=== PATIENT | female | born 1940 | race Caucasian/White ===

== ENCOUNTER 2017-07-26 17:19 | Emergency (ER) | payer MEDICARE, BC ==
[~2017-07-26] VITALS: Ht 157.5 cm; Wt 67.2 kg
[~2017-07-26 17:19] MED LIST: ADV50500 INH; ALBU8.5H8 IH; ATRIN INH; CARV3.123 PO; GUAI120015 PO; TRAV5DRO EACHEYE
[2017-07-26 17:52] LABS: BASOPHILS # (AUTO) 0.1 X10'3 (0-0.2); BASOPHILS % (AUTO) 0.6 % (0-1); EOSINOPHILS # (AUTO) 0.2 X10'3 (0-0.9); EOSINOPHILS % (AUTO) 2.1 % (0-6); HEMATOCRIT 42.4 % (35.0-45.0); HEMOGLOBIN 14.7 g/dl (12.0-16.0); LYMPHOCYTES # (AUTO) 2.1 X10'3 (1.1-4.8); LYMPHOCYTES % (AUTO) 21.3 % (21-51); MEAN CORPUSCULAR HEMOGLOBIN 28.9 PG (27.0-31.0); MEAN CORPUSCULAR HGB CONC 34.6 % (33.0-36.5); MEAN CORPUSCULAR VOLUME 83.5 FL (78-98); MEAN PLATELET VOLUME 7.6 FL (7.4-10.4); MONOCYTES # (AUTO) 0.5 X10'3 (0-0.9); MONOCYTES % (AUTO) 4.7 % (2-12); NEUTROPHILS # (AUTO) 7.1 X10'3 (1.8-7.7); NEUTROPHILS % (AUTO) 71.3 % (42-75); PLATELET COUNT 391 X10'3 (140-440); RED BLOOD COUNT 5.07 X10'6 (4.20-5.60); RED CELL DISTRIBUTION WIDTH 13.9 % (11.5-14.5); WHITE BLOOD COUNT 9.9 X10'3 (4.5-11.0)
[2017-07-26 18:03] LABS: PARTIAL THROMBOPLASTIN TIME 29 SECONDS (22-32); PROTHROMBIN TIME 9.9 SECONDS (9.0-12.0)
[2017-07-26 18:10] LABS: ALANINE AMINOTRANSFERASE 31 U/L (12-78); ALBUMIN 3.8 G/DL (3.4-5.0); ALKALINE PHOSPHATASE 111 IU/L (46-116); ANION GAP 10 (8-16); ASPARTATE AMINO TRANSFERASE 22 U/L (10-37); BILIRUBIN,TOTAL 0.2 MG/DL (0.1-1.0); BLOOD UREA NITROGEN 15 MG/DL (7-18); BUN/CREATININE RATIO 17.2 (6.6-38.0); CHLORIDE 105 MMOL/L (99-107); CREATININE 0.87 MG/DL (0.40-0.90); GLUCOSE 103 MG/DL (70-104); POTASSIUM 3.5 MMOL/L (3.5-5.1); SODIUM 142 MMOL/L (135-145); TOTAL CARBON DIOXIDE 27.2 MMOL/L (24-32); TOTAL PROTEIN 7.8 G/DL (6.4-8.2); eGFR 63 ML/MIN
[2017-07-26] MEDS ORDERED: mag hydrox/Alum hydrox/simeth 30ml oral suspension PO ONE (19:45)
[2017-07-26] MEDS ORDERED: LIDOcaine Viscous 15ml cup PO ONE (19:45)
[2017-07-26] MEDS ORDERED: pantoprazole 40mg Tablet.DR PO ONE (19:45)
[2017-07-26] MEDS ORDERED: famotidine 20mg tablet PO ONE (19:45)
[2017-07-26] MEDS ORDERED: PANT-47 PO (20:29)
[2017-07-26 20:44] VITALS: BP 172/90
== END 2017-07-26 20:45 | disposition home or self-care (01) ==
LOC: ER 17:20
DX: K21.9 Gastro-esophageal reflux disease without esophagitis (principal); R07.9 Chest pain, unspecified; I48.91 Unspecified atrial fibrillation; E78.00 Pure hypercholesterolemia, unspecified; I10 Essential (primary) hypertension; J45.909 Unspecified asthma, uncomplicated; Z90.49 Acquired absence of other specified parts of digestive tract; Z91.018 Allergy to other foods; Z79.899 Other long term (current) drug therapy
CPT/HCPCS: 36415; 71045; 80053; 84484; 85025; 85610; 85730; 93005; 99285

== ENCOUNTER 2020-12-21 10:26 | Emergency (ER) | payer MEDICARE, BC ==
[~2020-12-21] VITALS: Ht 160 cm; Wt 67.8 kg
[~2020-12-21 10:26] MED LIST changes: +ASPI-1265 PO; -ATRIN INH; +BIMA2.5D EACHEYE; -CARV3.123 PO; -GUAI120015 PO; -TRAV5DRO EACHEYE
[2020-12-21 10:54] VITALS: BP 181/96
== END 2020-12-21 13:46 | disposition home or self-care (01) ==
LOC: ER 10:26
DX: L50.9 Urticaria, unspecified (principal); T78.1XXA Other adverse food reactions, not elsewhere classified, initial encounter; R11.0 Nausea; I48.91 Unspecified atrial fibrillation; E78.00 Pure hypercholesterolemia, unspecified; I10 Essential (primary) hypertension; J45.909 Unspecified asthma, uncomplicated; Z90.49 Acquired absence of other specified parts of digestive tract; Z98.890 Other specified postprocedural states; Z79.82 Long term (current) use of aspirin; Z79.899 Other long term (current) drug therapy; X58.XXXA Exposure to other specified factors, initial encounter
CPT/HCPCS: 93005; 99283

== ENCOUNTER 2022-03-08 17:13 | Emergency (ER) | payer MEDICARE, BC ==
[~2022-03-08] VITALS: Ht 160 cm; Wt 63.2 kg
[~2022-03-08 17:13] MED LIST changes: +ALBU8.5H17 IH; -ALBU8.5H8 IH
[2022-03-08 18:10] LABS: BASOPHILS # (AUTO) 0.1 X10'3 (0-0.2); BASOPHILS % (AUTO) 0.9 % (0-1); EOSINOPHILS # (AUTO) 0.4 X10'3 (0-0.9); EOSINOPHILS % (AUTO) 4.1 % (0-6); HEMATOCRIT 43.3 % (35.0-45.0); HEMOGLOBIN 14.6 g/dl (12.0-16.0); LYMPHOCYTES # (AUTO) 1.9 X10'3 (1.1-4.8); LYMPHOCYTES % (AUTO) 20.8 % (21-51); MEAN CORPUSCULAR HEMOGLOBIN 28.4 PG (27.0-31.0); MEAN CORPUSCULAR HGB CONC 33.8 g/dL (33.0-36.5); MEAN CORPUSCULAR VOLUME 84.2 FL (78-98); MEAN PLATELET VOLUME 7.5 FL (7.4-10.4); MONOCYTES # (AUTO) 0.8 X10'3 (0-0.9); MONOCYTES % (AUTO) 8.4 % (2-12); NEUTROPHILS % (AUTO) 65.8 % (42-75); PLATELET COUNT 395 X10'3 (140-440); RED BLOOD COUNT 5.15 X10'6 (4.20-5.60); RED CELL DISTRIBUTION WIDTH 13.6 % (11.5-14.5); WHITE BLOOD COUNT 9.1 X10'3 (4.5-11.0)
[2022-03-08 18:28] LABS: ALANINE AMINOTRANSFERASE 24 U/L (12-78); ALBUMIN 3.7 G/DL (3.4-5.0); ALBUMIN/GLOBULIN RATIO 0.8 (1.1-1.5); ALKALINE PHOSPHATASE 107 IU/L (46-116); ANION GAP 7 (8-16); ASPARTATE AMINO TRANSFERASE 23 U/L (10-37); BILIRUBIN,TOTAL 0.2 MG/DL (0.1-1.0); BLOOD UREA NITROGEN 18 MG/DL (7-18); BUN/CREATININE RATIO 20.5 (6.6-38.0); CALCIUM 9.1 MG/DL (8.5-10.1); CHLORIDE 98 MMOL/L (99-107); CREATININE 0.88 MG/DL (0.40-0.90); GLUCOSE 111 MG/DL (70-104); POTASSIUM 4.3 MMOL/L (3.5-5.1); SODIUM 133 MMOL/L (135-145); TOTAL CARBON DIOXIDE 27.6 MMOL/L (24-32); TOTAL PROTEIN 8.1 G/DL (6.4-8.2); eGFR 62 ML/MIN
[2022-03-08] MEDS ORDERED: metoprolol succinate 25mg (24-HOUR) SR. Tablet PO STA (21:18)
[2022-03-08] MEDS ORDERED: METO-395 PO (21:29)
[2022-03-08] MEDS ORDERED: cloNIDine 0.1 mg tablet PO ONE (22:25)
[2022-03-08 22:59] VITALS: BP 173/114
== END 2022-03-08 23:03 | disposition home or self-care (01) ==
LOC: ER 17:13
DX: I10 Essential (primary) hypertension (principal); E78.00 Pure hypercholesterolemia, unspecified; J45.909 Unspecified asthma, uncomplicated; Z91.010 Allergy to peanuts; Z91.018 Allergy to other foods; Z91.09 Other allergy status, other than to drugs and biological substances; Z90.49 Acquired absence of other specified parts of digestive tract
CPT/HCPCS: 36415; 71045; 80053; 83880; 84484; 85025; 93005; 99285

== ENCOUNTER 2023-04-01 11:07 | Emergency (ER) | payer MEDICARE, BC ==
[~2023-04-01] VITALS: Ht 160 cm; Wt 66.0 kg
[~2023-04-01 11:07] MED LIST changes: +METO-395 PO
[2023-04-01] MEDS ORDERED: PRED20TA PO (12:29)
--- NOTE | 2023-04-01 12:44 | NUR ---
viewed and agree with lvns assessment.
[2023-04-01 12:53] VITALS: BP 205/121; PULSE 84; RESP 16; TEMP 97.7; O2SAT 95
--- NOTE | 2023-04-01 13:03 | NUR ---
PT INSTRUCTED TO TAKE PRESCRIBED BLOOD PRESSURE MEDICATIONS FOR HIGH BLOOD PRESSURE.
== END 2023-04-01 13:03 | disposition home or self-care (01) ==
LOC: ER 11:08
DX: M54.16 Radiculopathy, lumbar region (principal); E78.00 Pure hypercholesterolemia, unspecified; I10 Essential (primary) hypertension; J45.909 Unspecified asthma, uncomplicated; Z91.09 Other allergy status, other than to drugs and biological substances; Z91.010 Allergy to peanuts; Z91.018 Allergy to other foods; Z79.82 Long term (current) use of aspirin; Z79.899 Other long term (current) drug therapy; Z90.49 Acquired absence of other specified parts of digestive tract
CPT/HCPCS: 99283

== ENCOUNTER 2024-07-26 21:13 | Emergency (ER) | payer MEDICARE, BC ==
[~2024-07-26] VITALS: Ht 160 cm; Wt 63.2 kg
[~2024-07-26 21:13] MED LIST changes: -ADV50500 INH; +FLUT1BLS8 INH
[2024-07-26 21:58] LABS: BASOPHILS % (AUTO) 0.3 % (0-1); EOSINOPHILS % (AUTO) 0.6 % (0-6); HEMATOCRIT 41.3 % (35.0-45.0); HEMOGLOBIN 14.2 g/dl (12.0-16.0); LYMPHOCYTES # (AUTO) 0.9 X10'3 (1.1-4.8); LYMPHOCYTES % (AUTO) 16.4 % (21-51); MEAN CORPUSCULAR HEMOGLOBIN 28.9 PG (27.0-31.0); MEAN CORPUSCULAR HGB CONC 34.4 g/dL (33.0-36.5); MEAN CORPUSCULAR VOLUME 84.1 FL (78-98); MEAN PLATELET VOLUME 7.2 FL (7.4-10.4); MONOCYTES # (AUTO) 0.6 X10'3 (0-0.9); MONOCYTES % (AUTO) 10.9 % (2-12); NEUTROPHILS # (AUTO) 4.1 X10'3 (1.8-7.7); NEUTROPHILS % (AUTO) 71.8 % (42-75); PLATELET COUNT 245 X10'3 (140-440); RED BLOOD COUNT 4.92 X10'6 (4.20-5.60); RED CELL DISTRIBUTION WIDTH 13.6 % (11.5-14.5); WHITE BLOOD COUNT 5.7 X10'3 (4.5-11.0)
[2024-07-26 22:09] LABS: ALBUMIN 3.1 G/DL (3.4-5.0); ANION GAP 13 (8-16); BLOOD UREA NITROGEN 16 MG/DL (7-18); BUN/CREATININE RATIO 21.9 (10.0-20.0); CALCIUM 8.6 MG/DL (8.5-10.1); CHLORIDE 96 MMOL/L (99-107); CREATININE 0.73 MG/DL (0.40-0.90); GLUCOSE 87 MG/DL (70-104); MAGNESIUM 1.8 MG/DL (1.5-2.4); POTASSIUM 3.6 MMOL/L (3.5-5.1); SODIUM 130 MMOL/L (135-145); TOTAL CARBON DIOXIDE 21.2 MMOL/L (24-32); eCRCL 48 ML/MIN; eGFR 76 ML/MIN
[2024-07-26] MEDS: normal saline 1000ML IV soln IV ONE (22:23)
[2024-07-26] MEDS: dexamethasone sod phosphate 10mg/ml inj IV STA (23:00)
[2024-07-26 23:03] VITALS: TEMP 98.9
[2024-07-26] MEDS: ipratropium/albuterol 3ml nebule NEB ONE (23:26)
[2024-07-26 23:28] LABS: BILIRUBIN,URINE NEGATIVE (Neg); CLARITY,URINE CLEAR (Clear); COLOR,URINE STRAW (Yellow); GLUCOSE, URINE NEGATIVE (Neg); KETONES,URINE 15 mg/dl (Neg); LEUKOCYTE ESTERASE ,URINE SMALL (Neg); NITRITES, URINE NEGATIVE (Neg); OCCULT BLOOD,URINE SMALL (Neg); PROTEIN,URINE NEGATIVE (Neg); UROBILINOGEN,URINE 0.2 E.U/dL (0.2-1.0)
[2024-07-26 23:29] VITALS: PULSE 107; RESP 22; O2SAT 100
[2024-07-26 23:33] VITALS: PULSE 106; RESP 21; O2SAT 100
[2024-07-26 23:33] LABS: UA COLLECTION TYPE CLN CATCH MIDSTREAM
[2024-07-26 23:39] LABS: BACTERIA,URINE FEW /HPF (Neg); HYALINE CASTS 0-3 /LPF (NEGATIVE); MUCUS STRANDS NONE SEEN /LPF (Neg); RBC,URINE 0-2 /HPF (0-2); SQUAMOUS EPITHELIAL CELL,UR FEW /LPF (FEW); TRANSITIONAL EPI CELLS,URINE FEW /HPF
[2024-07-27] MEDS ORDERED: CEFU250T95 PO (00:45)
[2024-07-27 00:52] VITALS: BP 143/88; PULSE 106; RESP 16; O2SAT 98
[2024-07-27] MEDS: CefTRIAXone/D5W-Rocephin 1gm 50 ML IV ONE (01:23)
== END 2024-07-27 02:14 | disposition home or self-care (01) ==
LOC: ER 21:14
DX: J11.1 Influenza due to unidentified influenza virus with other respiratory manifestations (principal); N39.0 Urinary tract infection, site not specified; I48.91 Unspecified atrial fibrillation; E78.00 Pure hypercholesterolemia, unspecified; I10 Essential (primary) hypertension; J45.909 Unspecified asthma, uncomplicated; Z90.49 Acquired absence of other specified parts of digestive tract; Z98.890 Other specified postprocedural states; Z79.82 Long term (current) use of aspirin; Z79.899 Other long term (current) drug therapy
CPT/HCPCS: 87077; 94640; 96361; 96365; 96375; 99285; J0696; J1100; J7030; 36415; 71045; 80048; 81001; 83605; 83735; 84145; 85025; 87040; 87088; 87186; 93005; 94760

== ENCOUNTER 2024-07-28 17:30 | Inpatient (IN) | payer MEDICARE, BC ==
[~2024-07-28] VITALS: Ht 157.5 cm; Wt 61.0 kg
[~2024-07-28 17:30] MED LIST changes: +CEFU250T95 PO
[2024-07-28] MEDS: dexamethasone sod phosphate 10mg/ml inj IV STA (19:14)
[2024-07-28 19:29] LABS: BASOPHILS % (AUTO) 0.5 % (0-1); EOSINOPHILS % (AUTO) 0.7 % (0-6); HEMATOCRIT 42.6 % (35.0-45.0); HEMOGLOBIN 14.5 g/dl (12.0-16.0); LYMPHOCYTES # (AUTO) 1.2 X10'3 (1.1-4.8); LYMPHOCYTES % (AUTO) 28.3 % (21-51); MEAN CORPUSCULAR HEMOGLOBIN 28.7 PG (27.0-31.0); MEAN CORPUSCULAR VOLUME 84.3 FL (78-98); MEAN PLATELET VOLUME 7.4 FL (7.4-10.4); MONOCYTES # (AUTO) 0.6 X10'3 (0-0.9); MONOCYTES % (AUTO) 13.7 % (2-12); NEUTROPHILS # (AUTO) 2.5 X10'3 (1.8-7.7); NEUTROPHILS % (AUTO) 56.8 % (42-75); PLATELET COUNT 267 X10'3 (140-440); RED BLOOD COUNT 5.06 X10'6 (4.20-5.60); WHITE BLOOD COUNT 4.4 X10'3 (4.5-11.0)
[2024-07-28 19:49] VITALS: PULSE 94; RESP 16; O2SAT 92
[2024-07-28] MEDS: ipratropium/albuterol 3ml nebule NEB ONE (19:49)
[2024-07-28 19:53] LABS: ALBUMIN 3.3 G/DL (3.4-5.0); ANION GAP 7 (8-16); BLOOD UREA NITROGEN 11 MG/DL (7-18); BUN/CREATININE RATIO 15.9 (10.0-20.0); CHLORIDE 101 MMOL/L (99-107); CREATININE 0.69 MG/DL (0.40-0.90); GLUCOSE 98 MG/DL (70-104); MAGNESIUM 1.7 MG/DL (1.5-2.4); POTASSIUM 3.5 MMOL/L (3.5-5.1); PRO BRAIN NATRIURETIC PEPTIDE 291 PG/ML (0-450); SODIUM 136 MMOL/L (135-145); TOTAL CARBON DIOXIDE 27.9 MMOL/L (24-32); eCRCL 49 ML/MIN; eGFR 81 ML/MIN
[2024-07-28 19:59] VITALS: PULSE 91; RESP 16; O2SAT 93
[2024-07-28] MEDS: CefTRIAXone/D5W-Rocephin 1gm 50 ML IV ONE (21:05)
[2024-07-28] MEDS ORDERED: magnesium sulf-water 4G/100mL 100 ML IV PRN (21:15)
[2024-07-28] MEDS ORDERED: potassium Cl 40MEQ/1/2NS 520ml 520 ML IV PRN (21:15)
[2024-07-28] MEDS ORDERED: magnesium sulf-water 2g/50mL 50 ML IV PRN (21:15)
[2024-07-28] MEDS ORDERED: potassium Cl 20 mEq SR tablet PO PRN ×2 (21:15)
[2024-07-28] MEDS ORDERED: magnesium hydroxide 30ml (MOM) UD suspension PO PRN (21:15)
[2024-07-28] MEDS ORDERED: magnesium Cl slow-release 64mg tablet PO PRN (21:15)
[2024-07-28] MEDS ORDERED: acetaminophen 325mg tablet PO PRN (21:15)
[2024-07-28] MEDS ORDERED: mag hydrox/Alum hydrox/simeth 30ml oral suspension PO PRN (21:15)
[2024-07-28] MEDS: ondansetron/PF 4mg/2ml inj IV PRN (21:47)
[2024-07-28 21:48] LABS: BILIRUBIN,URINE NEGATIVE (Neg); CLARITY,URINE CLEAR (Clear); COLOR,URINE STRAW (Yellow); GLUCOSE, URINE NEGATIVE (Neg); KETONES,URINE TRACE mg/dl (Neg); LEUKOCYTE ESTERASE ,URINE NEGATIVE (Neg); NITRITES, URINE NEGATIVE (Neg); OCCULT BLOOD,URINE TRACE-INTACT (Neg); PROTEIN,URINE NEGATIVE (Neg); UROBILINOGEN,URINE 0.2 E.U/dL (0.2-1.0)
[2024-07-28 21:55] LABS: HEMOGLOBIN A1C 5.5 % (4.5-6.2)
[2024-07-28 22:02] LABS: UA COLLECTION TYPE VOIDED
[2024-07-28 22:04] LABS: BACTERIA,URINE NONE SEEN /HPF (Neg); MUCUS STRANDS NONE SEEN /LPF (Neg); RBC,URINE 0-2 /HPF (0-2); SQUAMOUS EPITHELIAL CELL,UR FEW /LPF (FEW); TRANSITIONAL EPI CELLS,URINE FEW /HPF; WBC,URINE 0-4 /HPF (0-4)
[2024-07-28] MEDS ORDERED: guaiFENesin 200 MG/10 ML oral syrup UD cup PO PRN (23:10)
[2024-07-28] MEDS: azithromycin 250mg tablet PO SCH (23:24)
[2024-07-28] MEDS: oseltamivir phos 75mg capsule PO SCH (23:24)
[2024-07-29] VITALS (9 sets, daily range): BP systolic 134–163; BP diastolic 78–92; PULSE 71–104; RESP 13–20; TEMP 97.9–98.7; O2SAT 93–97
[2024-07-29] MEDS: albuterol 2.5 MG/3 ML nebule NEB SCH (02:48)
[2024-07-29] MEDS ORDERED: OSEL75CA17 (06:37)
[2024-07-29] MEDS ORDERED: DOCU-392 PO (06:37)
[2024-07-29 07:32] LABS: BASOPHILS % (AUTO) 0.1 % (0-1); EOSINOPHILS % (AUTO) 0 % (0-6); HEMATOCRIT 41.9 % (35.0-45.0); HEMOGLOBIN 14.2 g/dl (12.0-16.0); LYMPHOCYTES # (AUTO) 0.6 X10'3 (1.1-4.8); LYMPHOCYTES % (AUTO) 20.6 % (21-51); MEAN CORPUSCULAR HEMOGLOBIN 28.8 PG (27.0-31.0); MEAN CORPUSCULAR HGB CONC 33.8 g/dL (33.0-36.5); MEAN CORPUSCULAR VOLUME 85.1 FL (78-98); MEAN PLATELET VOLUME 7.9 FL (7.4-10.4); MONOCYTES # (AUTO) 0.4 X10'3 (0-0.9); MONOCYTES % (AUTO) 13.6 % (2-12); NEUTROPHILS # (AUTO) 1.9 X10'3 (1.8-7.7); NEUTROPHILS % (AUTO) 65.7 % (42-75); PLATELET COUNT 291 X10'3 (140-440); RED BLOOD COUNT 4.93 X10'6 (4.20-5.60); RED CELL DISTRIBUTION WIDTH 13.6 % (11.5-14.5); WHITE BLOOD COUNT 2.9 X10'3 (4.5-11.0)
[2024-07-29 07:59] LABS: ALBUMIN 3.1 G/DL (3.4-5.0); ANION GAP 9 (8-16); BLOOD UREA NITROGEN 11 MG/DL (7-18); BUN/CREATININE RATIO 15.7 (10.0-20.0); CALCIUM 8.6 MG/DL (8.5-10.1); CHLORIDE 100 MMOL/L (99-107); CHOL/HDL RATIO 3.1 (0.00-4.99); CHOLESTEROL 162 MG/DL (0-200); GLUCOSE 135 MG/DL (70-104); HDL CHOLESTEROL 53 MG/DL (35-60); LDL CHOLESTEROL 92 MG/DL (50-100); MAGNESIUM 1.7 MG/DL (1.5-2.4); POTASSIUM 3.5 MMOL/L (3.5-5.1); SODIUM 136 MMOL/L (135-145); TOTAL CARBON DIOXIDE 27.5 MMOL/L (24-32); TRIGLYCERIDES 86 MG/DL (20-135); eCRCL 48 ML/MIN; eGFR 80 ML/MIN
[2024-07-29] MEDS: K and/or MAG REPLACEMENT MC SCH (08:00)
[2024-07-29] MEDS: budesonide 0.5mg/2ml UD nebule IH SCH (09:00)
[2024-07-29] MEDS: ipratropium/albuterol 3ml nebule NEB PRN (10:03)
[2024-07-29 10:09] LABS: PLATELET ESTIMATE NORMAL; TOTAL CELLS COUNTED 100
[2024-07-29] MEDS: methylPREDNISolone sod succ/PF 40mg inj. IV SCH (11:02)
[2024-07-29] MEDS: docusate sod 100mg capsule PO SCH (11:03)
[2024-07-29] MEDS: aspirin 81mg tab.chew PO SCH (11:03)
[2024-07-29] MEDS: pantoprazole 40mg Tablet.DR PO SCH (11:03)
[2024-07-29] MEDS: metoprolol succinate 25mg (24-HOUR) SR. Tablet PO SCH (11:03)
[2024-07-29] MEDS: lactobacillus rhamnosus 10,000 MMU CELLS/CAPSULE PO SCH (11:03)
[2024-07-29] MEDS: enoxaparin 40mg/0.4ml syringe SUBCUT SCH (11:05)
[2024-07-29] MEDS: hydrALAZINE 20mg/ml inj. IV PRN (18:49)
[2024-07-29] MEDS: albuterol 2.5 MG/3 ML nebule NEB PRN (20:16)
[2024-07-29] MEDS: CefTRIAXone/D5W-Rocephin 1gm 50 ML IV SCH (20:55)
[2024-07-30] MEDS ORDERED: BIMA2.5D EACHEYE (05:52)
[2024-07-30 05:58] LABS: BASOPHILS % (AUTO) 0.1 % (0-1); EOSINOPHILS % (AUTO) 0 % (0-6); HEMATOCRIT 41.1 % (35.0-45.0); LYMPHOCYTES # (AUTO) 0.8 X10'3 (1.1-4.8); MEAN CORPUSCULAR HEMOGLOBIN 28.6 PG (27.0-31.0); MEAN PLATELET VOLUME 7.8 FL (7.4-10.4); MONOCYTES # (AUTO) 0.3 X10'3 (0-0.9); MONOCYTES % (AUTO) 7.5 % (2-12); NEUTROPHILS # (AUTO) 3.3 X10'3 (1.8-7.7); NEUTROPHILS % (AUTO) 74.4 % (42-75); PLATELET COUNT 312 X10'3 (140-440); RED BLOOD COUNT 4.89 X10'6 (4.20-5.60); RED CELL DISTRIBUTION WIDTH 13.5 % (11.5-14.5); WHITE BLOOD COUNT 4.4 X10'3 (4.5-11.0)
[2024-07-30 06:00] VITALS: BP 144/87; PULSE 76; RESP 16; TEMP 98.6; O2SAT 94
[2024-07-30 06:20] LABS: ANION GAP 6 (8-16); BLOOD UREA NITROGEN 12 MG/DL (7-18); BUN/CREATININE RATIO 17.6 (10.0-20.0); CALCIUM 8.9 MG/DL (8.5-10.1); CHLORIDE 100 MMOL/L (99-107); CREATININE 0.68 MG/DL (0.40-0.90); GLUCOSE 139 MG/DL (70-104); MAGNESIUM 1.8 MG/DL (1.5-2.4); POTASSIUM 3.9 MMOL/L (3.5-5.1); SODIUM 135 MMOL/L (135-145); TOTAL CARBON DIOXIDE 28.7 MMOL/L (24-32); eCRCL 50 ML/MIN; eGFR 83 ML/MIN
[2024-07-30 08:00] VITALS: RESP 16; O2SAT 94
[2024-07-30] MEDS: apixaban 5mg tablet PO SCH (09:15)
[2024-07-30] MEDS ORDERED: naphazoline/pheniramine eye 1 DROP BOTTLE EACHEYE PRN (09:30)
[2024-07-30] MEDS ORDERED: polyvinyl alcohol eye drops 15ML BOTTLE EACHEYE PRN (09:40)
[2024-07-30 09:51] VITALS: PULSE 74; PULSE 77; RESP 16; RESP 20; O2SAT 95
[2024-07-30 10:00] VITALS: BP 139/74; PULSE 84; RESP 16; TEMP 98; O2SAT 97
[2024-07-30 10:01] VITALS: PULSE 84; RESP 16; O2SAT 94
[2024-07-30] MEDS ORDERED: PRED20TA PO (12:05)
[2024-07-30] MEDS ORDERED: CEFD300C3 PO (12:05)
[2024-07-30] MEDS ORDERED: latanoprost 0.005% 2.5ml ophthalmic drops EACHEYE SCH (21:00)
[2024-07-30] MEDS ORDERED: ONDA-243 PO (21:39)
== END 2024-07-30 13:38 | disposition home or self-care (01) | DRG 193 ==
LOC: ER 17:31 → ED HOLD 21:22 → ORTHO 4S 07-29 07:37
PROVIDERS: ADMIT Internal Medicine Sleep Medicine; ATTEND Family Medicine
DX: J10.1 Influenza due to other identified influenza virus with other respiratory manifestations (principal); J96.01 Acute respiratory failure with hypoxia; R65.10 Systemic inflammatory response syndrome (SIRS) of non-infectious origin without acute organ dysfunction; J45.901 Unspecified asthma with (acute) exacerbation; N30.90 Cystitis, unspecified without hematuria; Z20.822 Contact with and (suspected) exposure to COVID-19; J44.89 Other specified chronic obstructive pulmonary disease; I48.91 Unspecified atrial fibrillation; B96.4 Proteus (mirabilis) (morganii) as the cause of diseases classified elsewhere; E78.00 Pure hypercholesterolemia, unspecified; I10 Essential (primary) hypertension; K59.00 Constipation, unspecified; Z90.49 Acquired absence of other specified parts of digestive tract; Z91.010 Allergy to peanuts
CPT/HCPCS: 36415; 71045; 80048; 80061; 81001; 83036; 83605; 83735; 83880; 84145; 84484; 85007; 85025; 87040; 87077; 87081; 87088; 87186; 87502; 87503; 87811; 93005; 93306; 94640; 94760; 96361; 96365; 96374; 96375; 99285; A4615; G0378; J0360; J0696; J1100; J1650; J2405; J2919; J7030

== ENCOUNTER 2024-07-30 20:04 | Emergency (ER) | payer MEDICARE, BC ==
[~2024-07-30] VITALS: Ht 157.5 cm; Wt 63.2 kg
[~2024-07-30 20:04] MED LIST changes: +CEFD300C3 PO; -CEFU250T95 PO; +DOCU-392 PO; +OSEL75CA17; +PRED20TA PO
[2024-07-30] MEDS: metoprolol succinate 25mg (24-HOUR) SR. Tablet PO ONE (21:12)
[2024-07-30] MEDS ORDERED: ONDA-243 PO (21:39)
[2024-07-30 22:00] VITALS: TEMP 98.1
[2024-07-30 22:25] VITALS: BP 172/103; PULSE 77; RESP 16; O2SAT 94
== END 2024-07-30 22:28 | disposition home or self-care (01) ==
LOC: ER 20:05
DX: I10 Essential (primary) hypertension (principal); R11.0 Nausea; E78.00 Pure hypercholesterolemia, unspecified; I48.91 Unspecified atrial fibrillation; J45.909 Unspecified asthma, uncomplicated; Z90.49 Acquired absence of other specified parts of digestive tract; Z79.82 Long term (current) use of aspirin; Z79.52 Long term (current) use of systemic steroids; Z79.899 Other long term (current) drug therapy; Z98.890 Other specified postprocedural states; Z60.2 Problems related to living alone
CPT/HCPCS: 99285

== ENCOUNTER 2024-08-10 18:25 | Emergency (ER) | payer MEDICARE, BC ==
[~2024-08-10] VITALS: Ht 157.5 cm; Wt 61.4 kg
[~2024-08-10 18:25] MED LIST changes: +ONDA-243 PO
[2024-08-10 18:28] VITALS: TEMP 98.5
[2024-08-10 19:32] LABS: BASOPHILS # (AUTO) 0.1 X10'3 (0-0.2); BASOPHILS % (AUTO) 0.5 % (0-1); EOSINOPHILS # (AUTO) 0.1 X10'3 (0-0.9); EOSINOPHILS % (AUTO) 0.7 % (0-6); HEMATOCRIT 44.8 % (35.0-45.0); HEMOGLOBIN 14.8 g/dl (12.0-16.0); LYMPHOCYTES # (AUTO) 2.3 X10'3 (1.1-4.8); MEAN CORPUSCULAR HEMOGLOBIN 28.4 PG (27.0-31.0); MEAN PLATELET VOLUME 7.2 FL (7.4-10.4); MONOCYTES # (AUTO) 0.8 X10'3 (0-0.9); MONOCYTES % (AUTO) 6.9 % (2-12); NEUTROPHILS # (AUTO) 8.6 X10'3 (1.8-7.7); NEUTROPHILS % (AUTO) 72.9 % (42-75); PLATELET COUNT 460 X10'3 (140-440); RED CELL DISTRIBUTION WIDTH 14.2 % (11.5-14.5); WHITE BLOOD COUNT 11.8 X10'3 (4.5-11.0)
[2024-08-10 19:36] LABS: BILIRUBIN,URINE NEGATIVE (Neg); CLARITY,URINE CLEAR (Clear); COLOR,URINE YELLOW (Yellow); GLUCOSE, URINE NEGATIVE (Neg); KETONES,URINE NEGATIVE (Neg); LEUKOCYTE ESTERASE ,URINE SMALL (Neg); NITRITES, URINE NEGATIVE (Neg); OCCULT BLOOD,URINE SMALL (Neg); PROTEIN,URINE NEGATIVE (Neg); UROBILINOGEN,URINE 0.2 E.U/dL (0.2-1.0)
[2024-08-10 19:37] LABS: UA COLLECTION TYPE CLN CATCH MIDSTREAM
[2024-08-10 19:45] LABS: BACTERIA,URINE FEW /HPF (Neg); SQUAMOUS EPITHELIAL CELL,UR FEW /LPF (FEW); WBC,URINE 0-4 /HPF (0-4)
[2024-08-10 19:56] LABS: ALBUMIN 3.7 G/DL (3.4-5.0); ANION GAP 8 (8-16); BLOOD UREA NITROGEN 16 MG/DL (7-18); BUN/CREATININE RATIO 22.5 (10.0-20.0); CHLORIDE 101 MMOL/L (99-107); CREATININE 0.71 MG/DL (0.40-0.90); GLUCOSE 99 MG/DL (70-104); POTASSIUM 3.7 MMOL/L (3.5-5.1); PRO BRAIN NATRIURETIC PEPTIDE 169 PG/ML (0-450); SODIUM 136 MMOL/L (135-145); TOTAL CARBON DIOXIDE 26.6 MMOL/L (24-32); eCRCL 47 ML/MIN; eGFR 79 ML/MIN
[2024-08-10] MEDS ORDERED: SULF1TAB49 PO (22:59)
[2024-08-10] MEDS: sulfamethoxazole/trimethoprim DS (800/160mg) tablet PO ONE (23:05)
[2024-08-10 23:20] VITALS: BP 158/99; PULSE 70; RESP 16; O2SAT 98
== END 2024-08-10 23:21 | disposition home or self-care (01) ==
LOC: ER 18:26
DX: N39.0 Urinary tract infection, site not specified (principal); D72.829 Elevated white blood cell count, unspecified; E78.00 Pure hypercholesterolemia, unspecified; I10 Essential (primary) hypertension; I48.91 Unspecified atrial fibrillation; J45.909 Unspecified asthma, uncomplicated; Z90.49 Acquired absence of other specified parts of digestive tract; Z79.82 Long term (current) use of aspirin
CPT/HCPCS: 36415; 71046; 80048; 81001; 83605; 83880; 85025; 87040; 87088; 99284